=== PATIENT | male | born 1945 | race Caucasian/White ===

== ENCOUNTER → 2021-06-16 10:58 | Outpatient (CLI) | payer MEDICARE, OTHER, SELFPAY ==
[2021-06-16 11:24] LABS: COVID19 -Nasal RAPID Negative (Negative)
== END ==
PROVIDERS: Visit Provider Urology
DX: Z20.822 Contact with and (suspected) exposure to COVID-19 (principal)
CPT/HCPCS: 87635; C9803

== ENCOUNTER 2021-06-19 10:13 | Day surgery (SDC) | payer MEDICARE, OTHER, SELFPAY ==
[2021-06-17 09:38] VITALS: BMI 21.7
--- NOTE | 2021-06-19 | PATH_ITS ---
[facility] Accession Number: [id number] . 01 Material submitted: . testis - HYDROCELE SAC . 02 Diagnosis: Hydrocele Sac: Fibroconnective and fibromuscular tissue with a patchy mesothelial lining, consistent with hydrocele, in the appropriate clinical and imaging setting. Calculus present (11 mm in greatest dimension). MRV 06/24/2021 1152 Local . 02 Electronically signed: . Claudia Mcelroy MD, Pathologist NPI- [id number] . 01 Gross description: . The specimen is received in formalin, labeled hydrocele sac, and consists of three pink to cazares-tee portions of fibrous tissue measuring 2.0 x 1.7 x 0.4 cm to 5.8 x 2.5 x 0.5 cm. Also received in the specimen container is an irregular, orange-yellow calculus measuring 1.1 x 0.7 x 0.2 cm. The fibrous fragments of tissue exhibit glistening smooth surfaces. No lesions or masses are grossly identified. The specimen is representatively submitted in two cassettes. ([id number]) /[facility] 06/21/2021 1126 Local . 02 Pathologist provided ICD-10: N43.3 . 02 CPT . 128246 Specimen Comment: A courtesy copy of this report has been sent to [phone] Performed at: 01 [facility] [address] [place] [address], [place], [place] [id number] MD Jose Lawton MD Phone: [phone] Performed at: 02 [facility] [address] [place], [place] [id number] MD Fatimah Avendaño MD Phone: [phone]
[2021-06-19 10:45] VITALS: BP 141/84; PULSE 77; RESP 16; TEMP 36.6; O2SAT 100; BMI 21.7
[2021-06-19] MEDS: LACTATED RINGERS 1,000 ML 42 ML IV ×2 (10:58→13:06)
--- NOTE | 2021-06-19 11:42 | PM.PREOP ---
Pre-operative Note COVID-19 COVID-19 status: Negative Result date/Date tested (Pos, Neg/Pending): 06/16/21 Criteria for continued procedure: Possibility delay results in more complex future surgery or treatment Interval Note History & Physical reviewed/Exam performed by Physician: Yes Changes to H&P: No
[2021-06-19] MEDS: CEFAZOLIN 2 GM/20 ML SYRINGE IV (12:22)
--- NOTE | 2021-06-19 12:40 | SUR.OPER ---
Supine on padded OR bed, head on pillow, arms secured on padded arm boards at <90 degrees abduction, legs uncrossed, safety belt at thigh, tape over blanket over lower legs. Gel pad under heels. Pillow under knees.
[2021-06-19] MEDS: BACITRACIN 28 GM OINT 1 APPLIC TOP (13:02)
[2021-06-19] MEDS: BUPIVACAINE 0.25% (PF) VIAL 30 ML INJ (13:02)
--- NOTE | 2021-06-19 13:25 | PM.OP.1 ---
Procedure & Clinicians Procedure: Left hydrocelectomy Same procedure as scheduled: Yes Indications: This 76-year-old male presented with complaint of left hemiscrotal enlargement. Through evaluation was found to have a left hydrocele which he finds bothersome he presents this time for left hydrocelectomy. Surgeon: Adan Orr Click Yes if Unassisted: Yes Anesthesia Type: General Operative Notes Findings: Findings in the left hemiscrotum consistent with hydrocele the fluid was yellow in color and a proximally 190-200 cc. There were a couple of small scrotal pearls which were removed. Otherwise normal anatomy was observed. Patient did have a couple of small inconsequential spermatoceles which were left alone. Closure Type: primary Specimen(s): other (Hydrocele sac) Prosthetic devices, grafts, tissues, transplants, or devices: None Estimated Blood Loss (mL): 10 Blood products transfused: none Procedure in detail: After informed consent was obtained, patient was identified, he was then brought to the operating room worries placed in a supine position on the table. Patient had anesthesia induced and maintained. Patient was then shaved, prepped, draped, prepared for left hemiscrotal procedure. After prepping draping and ensuring an adequate level of anesthesia a transverse incision was made in the left hemiscrotum in his dissection carried down through the layers of the dartos. The hydrocele sac and testes were then delivered. The hydrocele was then entered on the opposite side from the testis and cord structures. In the fluid evacuated the opening was then advanced in a longitudinal fashion and the hydrocele sac was removed with electrocautery dissection. The scrotal pearls were removed. A cord block was performed with 0.25% Marcaine and the remaining edges of the hydrocele sac were loosely approximated around the ?backside of the cord?. The testis was then returned to the scrotum after irrigation and the dartos reapproximated with a running 2-0 chromic gut suture. Skin edges were reapproximated with interrupted vertical mattress of 2-0 chromic the skin was then infiltrated with 0.25% Marcaine. Bacitracin was then applied with Telfa fluffs and scrotal support. Patient was awakened having tolerated procedure well without complication to be transferred to the postanesthesia care unit for recovery. The patient will then be discharged to home. Complications: none Post-operative Condition: stable Disposition: PACU Plan for aftercare: Patient to be discharged home to follow up my office in approximately 10-14 days.
[2021-06-19 13:27] VITALS: BP 114/70; PULSE 66; RESP 14; TEMP 36.7; O2SAT 98
[2021-06-19 13:32] VITALS: BP 109/68; PULSE 68; RESP 16; O2SAT 99
[2021-06-19 13:37] VITALS: BP 119/77; PULSE 78; RESP 15; O2SAT 98
[2021-06-19 13:42] VITALS: BP 123/75; PULSE 71; RESP 20; RESP 25; O2SAT 99
[2021-06-19 13:51] VITALS: BP 134/75; PULSE 65; RESP 17; TEMP 36.4; O2SAT 99
== END 2021-06-19 14:19 | disposition home or self-care (01) ==
PROVIDERS: Referring Provider Urology; Visit Provider Urology
PROC: (CPT 55040; principal; 2021-06-19 12:00)
DX: N43.3 Hydrocele, unspecified (principal); N43.42 Spermatocele of epididymis, multiple
CPT/HCPCS: 55040; J0690; J2704; J3010